=== PATIENT | female | born 1995 | race African-American/Black ===

== ENCOUNTER 2018-12-22 20:34 | Emergency (ER) | payer OTHER ==
[~2018-12-22] VITALS: Ht 170.2 cm; Wt 59.0 kg
--- NOTE | 2018-12-22 20:37 | NUR ---
ED Nurse Note: Walk-in patient with complaints of fall right outside hospital. Patient stubbed toe on cement, right third digit.
[2018-12-22] MEDS ORDERED: ALBUTEROL2.5 MG/3 M INH (20:41)
[2018-12-22] MEDS ORDERED: Tetanus/Diptheria/Pertussis IM ONE (21:00)
--- NOTE | 2018-12-22 21:03 | Emergency Room Report ---
History of Present Illness General Chief Complaint: Lower Extremity Injury Present Illness HPI Disclaimer: Please note that this report is being documented using DRAGON technology. This can lead to erroneous entry secondary to incorrect interpretation by the dictating instrument. HPI: 23-year-old female presents for evaluation of toe injury. She was walking into the hospital to visit a family member when she states she tripped over the tire spikes. She was wearing open toed sandals and sustained an abrasion over the distal phalanx of the right third toe. There is no head injury, no loss of consciousness, no other injury reported. She is able to ambulate. No other complaints at this time. Cannot recall last tetanus shot PMH: Asthma PSH: None Allergies: None Social Hx: None Allergies: Coded Allergies: No Known Allergies (Unverified , 12/22/18) Patient History Last Menstrual Period: 12/10/18 Now: No Nursing Documentation-PMH Past Medical History: No History, Except For Hx Asthma: Yes Review of Systems All Other Systems: negative except mentioned in HPI Physical Exam Vital Signs Date Time Temp Pulse Resp B/P (MAP) Pulse Ox O2 Delivery O2 Flow Rate FiO2 12/22/18 20:37 98.2 67 14 113/76 (88) 97 Room Air General: Awake and alert, no acute distress HEENT: NC/AT. EOMI. Resp: Normal work of breathing. Skin: I abrasion over the hyponychial fold on the right third toe. No laceration. Otherwise no rash or breakdown MSK: Normal tone and bulk. Moving all extremities. No obvious deformity. Tenderness over the distal phalanx of the third toe on the right foot. No midfoot tenderness, no tenderness in the ankle or edema. Ambulatory without difficulty Neuro: Awake and alert. Mentating appropriately. Medical Decision Making Diagnostic Impression: Primary Impression: Injury of lower extremity Additional Impression: Abrasion ER Course 23-year-old female presents for evaluation of abrasion over the right foot sustained while allegedly walking into the hospital and tripping over a tire spikes in the driveway. Cannot recall last tetanus. Tetanus will be updated. X-ray does not show any fracture dislocation. Patient will have the abrasion cleaned and bandaged and discharged. Encouraged to wear close toed shoes while healing. Follow-up with PMD as needed Other X-Ray Diagnostic Results Other X-Ray Diagnostic Results : X-Ray ordered: Foot # of Views/Limited Vs Complete: 3 View Indication: Pain EP Interpretation: Yes Interpretation: no dislocation, no soft tissue swelling, no fractures Impression: No acute disease Electronically Signed by: Electronically signed by Dr. Roger Emanuel Last Vital Signs Date Time Temp Pulse Resp B/P (MAP) Pulse Ox O2 Delivery O2 Flow Rate FiO2 12/22/18 20:37 98.2 67 14 113/76 (88) 97 Room Air Disposition: HOME, SELF-CARE Condition: Stable Referrals: Rafael[facility] Patient Instructions: Abrasion Additional Instructions: Use Tylenol and Motrin as needed for control of pain. Your tetanus was updated today. Keep the wound clean and dry with a bandage for covering. Follow-up with your doctor as needed. Return to the emergency about new or worsening symptoms Roger Emanuel MD Dec 22, 2018 21:02
[2018-12-22 21:18] VITALS: BP 113/76
--- NOTE | 2018-12-22 21:18 | NUR ---
ED Nurse Note: Ptient cleared for discharge, tolerated injection and wound care well. Patient verbalized understanding of discharge instructions and departed with all belongings.
--- NOTE | 2018-12-23 11:02 | Diagnostic Imaging Report ---
Indication: Foot Pain Comparison: None Findings: 3 views of the right foot were obtained. No acute fractures, malalignment, erosions or periostitis are identified. Impression: No acute findings.
== END 2018-12-22 21:19 | disposition home or self-care (01) ==
LOC: EMR 20:50
DX: S90.414A Abrasion, right lesser toe(s), initial encounter (principal); Z23 Encounter for immunization; J45.909 Unspecified asthma, uncomplicated; W22.09XA Striking against other stationary object, initial encounter; Y92.481 Parking lot as the place of occurrence of the external cause
CPT/HCPCS: 73630; 90471; 90715; Z7502; 99283